=== PATIENT | female | born 2000 | race Caucasian/White ===

== ENCOUNTER 2025-01-20 19:56 | Emergency (ER) | payer BC, SELFPAY ==
[2025-01-20 20:23] VITALS: BP 112/79; PULSE 90; TEMP 37.1; O2SAT 98; BMI 23.8
--- NOTE | 2025-01-20 20:48 | XR_ITS ---
[facility] [address] Patient Name: JIGAR MARTIN MRN: [id number] date: 2000 Sex: F Assigned Patient Location: ED.MAIN Current Patient Location: ED.MAIN Accession/Order Number: [id number] Exam Date: 01/20/2025 21:00 Report Date: 01/20/2025 21:27 At the request of: MICK KIRKPATRICK Procedure: XR wrist RT min 3V 3 views right wrist plain film COMPARISON: None HISTORY: Right wrist injury. Fell. ACUTE FINDINGS: Impacted volar apex angulated fracture of the distal radius. Avulsed ulnar styloid fracture. DEGENERATIVE CHANGE: Unremarkable SOFT TISSUE FINDINGS: Unremarkable JOINT EFFUSION: None POSTOP CHANGES: The bone screw in the base of the fourth metacarpal. BONE MINERALIZATION: Adequate XR/XR wrist RT min 3V IMPRESSION: Impacted volar apex angulated distal radius fracture. Avulsed ulnar styloid fracture. Impression dictated by: Vinh Motley M.D. 01/20/2025 9:27 PM Dictation Location: [facility] Electronically authenticated by: [id number] Y Date: 01/20/2025 21:27
--- NOTE | 2025-01-20 20:51 | ED_ITS ---
HPI HPI - General Adult General Chief complaint: Extremity Injury, Upper Stated complaint: RIGHT WRIST INJURY Time Seen by Provider: 01/20/25 20:43 Source: patient Mode of arrival: walk-in Limitations: no limitations History of Present Illness HPI narrative: Patient is a 24-year-old female that presents to the emergency department with complaints of right wrist pain after she was playing softball and was running the bases and ran into another player with outstretched hands and felt a pop in her right wrist with pain. She reports severe right wrist pain and deformity since the incident. She did take 3 ibuprofen prior to evaluation. She denies numbness to the fingers. Related Data Previous Rx's ?Medication ?Instructions ?Recorded oxycodone-acetaminophen 5 mg-325 1 tab PO Q6H PRN pain #14 tabs 01/20/25 mg tablet (Percocet) Allergies Allergy/AdvReac Type Severity Reaction Status Date / Time Sulfa (Sulfonamide Allergy Mild hives Verified 01/20/25 20:22 Antibiotics) Opioid HPI Opioid Management Most Recent Opioid Data: Last Pain Scale 8 01/20/25, 21:02 Last MAR Pain Assessment 01/20/25, 21:02 PFSH PFSH Social History Little interest or pleasure in doing things: not at all Feeling down, depressed, or hopeless: not at all Exam Narrative Exam Narrative: General: No distress, age-appropriate Skin: Warm, dry, no pallor. No rash. Head: Normocephalic, atraumatic. Eye: Pupils are equal, round and EOMI. No scleral icterus. Cardiovascular: Regular Rate and Rhythm without murmur, gallop or rub. Respiratory: No accessory muscle use or respiratory distress. Musculoskeletal: Full ROM of all extremities, except right wrist. Patient is able to actively flex/extend all right fingers and thumb but this is limited secondary to wrist pain. There is deformity and swelling at the wrist. There is tenderness with palpation of the distal radius and ulna. There is a well healed surgical scar over the dorsal aspect of the fourth metacarpal. No calf or popliteal tenderness. Neurological: A&O x4. No cranial nerve dysfunction observed. No truncal ataxia. Moves all extremities. Sensation intact. Psychiatric: Cooperative and interactive. Normal mood and affect. Constitutional Vital Signs, click to edit/add: Last Vital Signs Temp 98.8 F 01/20/25 20:23 Pulse 90 01/20/25 20:23 Resp 18 01/20/25 20:23 BP 112/79 01/20/25 20:23 Pulse Ox 98 01/20/25 20:23 O2 Del Method Room Air 01/20/25 20:23 Course Vital Signs Vital signs: Vital Signs Temperature 98.8 F 01/20/25 20:23 Pulse Rate 90 01/20/25 20:23 Respiratory Rate 18 01/20/25 20:23 Blood Pressure 112/79 01/20/25 20:23 Pulse Oximetry 98 01/20/25 20:23 Oxygen Delivery Method Room Air 01/20/25 20:23 Temperature 98.8 F 01/20/25 20:23 Pulse Rate 90 01/20/25 20:23 Respiratory Rate 18 01/20/25 20:23 Blood Pressure 112/79 01/20/25 20:23 Pulse Oximetry 98 01/20/25 20:23 Oxygen Delivery Method Room Air 01/20/25 20:23 Medical Decision Making MDM Narrative Medical decision making narrative: This is a 24-year-old female that presents to the emergency department with complaints of right wrist pain and deformity after she was playing softball and running the bases and ran into another player with outstretched hands. She did feel a pop and pain in the wrist immediately. She is icing her wrist on arrival. She did take ibuprofen prior to arrival. On arrival patient is sitting up in the ED cart, appears uncomfortable. Vitals are stable. Patient is afebrile. X-ray right wrist ordered. Percocet 5 mg ordered. X-ray reviewed interpreted by myself and reveals a distal radius fracture with dorsal angulation. There is also a mildly displaced ulnar styloid fracture. Patient and parents updated with results, will talk with Dr. Juarez with orthopedics. I spoke with Dr Juarez and his office will reach out to the patient to get her scheduled this week, he did say she will likely need surgery with the degree of angulation of the fracture if satisfactory reduction is not achieved. I discussed risks versus benefits of this with patient and her parents that we could try conscious sedation and reduction vs splinting and referral. We discussed that even with attempted reduction here she still may require surgery as I discussed with Dr Juarez. She is right hand dominant. Ultimately she decided she did not want to undergo attempt at bedside reduction as she didn't think she would tolerate it, thus a sugar tong splint was applied. On re- evaluation she remained neurologically intact. Sling placed for comfort. I will send her home with 1 tablet of Percocet 5mg tonight and a short course of Percocet 5mg for pain until seen by Orthopedics. Plan will be to get her into the office tomorrow or . Splint instructions discussed and return precautions. Patient's pain was controlled and she was discharged home with close follow up with Orthopedics. Differential Diagnosis Differential Diagnosis: Distal radius/ulna fractures, wrist sprain Imaging Data Right Wrist Xray: Attestation: I have reviewed the pertinent imaging results. Radiologist's impression: ITS Impressions Wrist X-Ray 01/20/25 20:48 IMPRESSION: Impacted volar apex angulated distal radius fracture. Avulsed ulnar styloid fracture. Impression dictated by: Vinh Motley M.D. 01/20/2025 9:27 PM Dictation Location: [facility] Electronically authenticated by: [id number] Y Date: 01/20/2025 21:27 Discharge Plan Discharge Chief Complaint: Extremity Injury, Upper Clinical Impression: Distal radius fracture, right, Fracture of right ulnar styloid Patient Disposition: Home, Self-Care Time of Disposition Decision: 22:06 Condition: Good Mode of Transportation: Private Vehicle Prescriptions / Home Meds: New oxycodone-acetaminophen [Percocet] 5-325 mg tablet 1 tab PO Q6H PRN (Reason: pain) Qty: 14 0RF Print Language: Irish Instructions: Arm Fracture in Adults (DC), ORIF of an Arm Fracture (DC) Additional Instructions: Keep splint in place and keep clean and dry. Use a plastic bag or cover during showers to keep it dry or you can buy a reusable cast bags on [employer] Elevate the arm above heart level for the first 24-48 hours to reduce swelling. Return to the ER or call your doctor if: - Fingers become cold, blue, pale, or very swollen - Numbness or tingling in the fingers -Splint becomes damaged, soaked, or too tight You will need to follow-up with an intelligence operations specialist within 3 to 7 days. Referrals: Brennon Juarez DO [Physician, Orthopedics] - As soon as possible Referral Note: Office will call to set up appointment. Physician,Non-Staff, [Primary Care Provider] - 1 week Discharge Date/Time: 01/20/25 22:19 Procedures ED Ortho Splinting/Casting Orthopedic Splinting/Casting Injury #1: Side: right Splint type: Splint arm short (Sugar Tong) Upper extremity injury location: wrist Upper extremity immobilizer: sling/shoulder immobilizer Additional comments: Sugar tong splint applied. On re-evaluation patient was neurovascularly intact. <2s capillary refill to all fingers and thumb.
[2025-01-20] MEDS: OXYCODONE HCL/ACETAMINOPHEN 5MG/325MG 1 TAB PO ×2 (21:02→22:13)
--- OUTSIDE RECORDS SUMMARY | 2025-01-20 21:06 | XMS_ITS | Encounter Summary ---
Author Organization [facility] Address [address] [place] [address] Care Team Providers Care Saddle And Harness Maker Name Role Phone Sandra Dey MD Primary Care Provider + [phone] Elena Elaine PETROLEUM ANALYST Unavailable [phone] Sandra Dey MD Unavailable [phone] Encounter Details Date Type Department Care Team (Late st Contact Info) Description 03/07/2023 Abstract [facility] [address] [place] [address] Didi Mcfadden NP [address] [place] [address] Social History Tobacco Use Types Packs/Day Years Used Date Smoking Tobacco: Never Smokeless Tobacco: Never Tobacco Cessation:Counseling Given: Not Answered Alcohol Use Standard Drinks/Week Comments Not Asked 0 (1 standard drink = 0.6 oz pur e alcohol) socially Comments Unknown Sex and Gender Information Value Date Recorded Sex Assigned at Not on file Legal Sex Female 7:11 PM EDT Gender Identity Female 07/05/2022 7:11 PM EDT Sexual Orientation Not on file documented as of this encounter Plan of Treatment Not on file documented as of this encounter Visit Diagnoses Not on filedocumented in this encounter Care Teams Saddle And Harness Maker Relationship Specialty Start Date End Date Sandra Dey MD [address] [place] [address] PCP - General Family Medicine 11/17/22 Sandra Dey MD [address] [place], [place] [id number] PCP - Romulo Post 02/21/23 Chele, Elena Morales NP [address] [place], [place] [id number] Nurse Practitioner Family Medicine 11/17/22 documented as of this encounter
--- OUTSIDE RECORDS SUMMARY | 2025-01-20 21:06 | XMS_ITS | Clinical Summary ---
Author Organization [facility] Address [address] [place] [address] Care Team Providers Care Rubbing Bed Operator Name Role Phone MillyJagjit zimmerman Primary Care Provider Unavailabl e Social History Tobacco Use Types Packs/Day Years Used Date Smoking Tobacco: Never Assessed [place] Safety & Environment Answer Date Rec orded Fear of Current or Ex-Partner Not on file Emotionally Abused Not on file 06/14/2023 Physically Abused Not on file 06/14/2023 Sexually Abused Not on file 06/14/2023 Physically or Sexually Abused Not on file Comments Unknown Sex and Gender Information Value Date Recorded Sex Assigned at Not on file Legal Sex Female 12:33 AM EDT Gender Identity Not on file Sexual Orientation Not on file Plan of Treatment Health Maintenance Due Date Last Done Comments Depression Screening 2013 Varicella Vaccines (1 of 2 - 13+ 2-dose series) 2014 HPV Vaccines (1 - 3-dose series) 2016 Meningococcal B Vaccine (1 of 2 - Standard) 2017 Pap Smear 2022 Adult Tetanus 09/24/2023 Influenza Vaccine (#1) 2024 0, 02/05/2010, 03/31/2009, Additional history exists Zoster Vaccines (1 of 2) 09/24/2051 Meningococcal Vaccine Completed 12/17/2018 HIB Vaccines Aged Out No longer eligi ble based on patient's age to complete this topic IPV Vaccines Aged Out No longer eligi ble based on patient's age to complete this topic Pneumococcal Vaccine: Pediatrics (0 to 5 Years) and At-Risk Patients (6 to 64 Years) Aged Out No longer eligible based on patient's age to complete this topic Rotavirus Vaccines Aged Out No longer eligible based on patient's age to complete this topic Insurance [employer] Care Teams Rubbing Bed Operator Relationship Specialty Start Date End Date Jagjit Womack [address] [place] [address] PCP - General 01/24/22
--- OUTSIDE RECORDS SUMMARY | 2025-01-20 21:06 | XMS_ITS | Clinical Summary ---
Author Organization [facility] Address [address] [address] Care Team Providers Care Content Development Specialist Name Role Phone Sandra Dey MD Primary Care Provider + [phone] CaseElena DOUGHNUT GLAZIER Unavailable [phone] Allergies Active Allergy Reactions Criticality Noted Date Comments Pollen Extract Unknown 11/21/2022 Sulfamethoxazole-Trimethoprim Rash Low 2022 Medications ibuprofen 200 MG tablet every 6 (six) hours. Active midodrine (Proamatine) 10 MG tablet every 8 (eight) hours. Active Active Problems Problem Noted Date Diagnosed Date Menorrhagia with regular cycle 11/21/2022 Plantar wart of right foot 11/21/2022 Immunizations Immunization Administration Dates Next Due Influenza, live, intranasal 02/05/2010 Influenza, seasonal, intradermal, preservative f ree 04/12/2020 Meningococcal MCV4P 12/17/2018 Novel [id number], nasal 02/19/2009 Novel [id number], preservative-free 03/31 Family History Relation Name Status Comments Brother 1 Alive Brother 2 Alive Father Alive Mother Alive Sister Alive Social History Tobacco Use Types Packs/Day Years [...] PM EDT Sexual Orientation Not on file Last Filed Vital Signs Vital Sign Reading Time Taken Comments Blood Pressure 110/76 11/22/2022 9:10 AM EDT Pulse 86 11/22/2022 9:10 AM EDT Temperature 36.6 C (97.9 F) 11/22/2022 9:10 AM EDT Respiratory Rate - - Oxygen Saturation 98% 11/22/2022 9:10 AM EDT Inhaled Oxygen Concentration - - Weight 64 kg (141 lb) 11/22/2022 9:10 AM EDT Height 156.2 cm (5' 1.5 ) 11/22/2022 9:10 AM EDT Body Mass Index 26.21 11/22/2022 9:10 AM EDT Plan of Treatment Health Maintenance Due Date Last Done Comments Influenza Vaccine (#1) 2024 04/12/2020, 2009 Insurance [facility] Member Subscriber Plan / Payer (Ef fective 2022-Present) Name:Mildred Martin Member ID:[id number] Relation to Subscriber:Child Name:JOAN MARTIN Subscriber ID:[id number] Date of :1968 Address: [address] [place] [address] [place] [address] Payer ID:Not on file Type:Not on file Address: [facility] [id number] [place] [address] Care Teams Content Development Specialist Relationship Specialty Start Date End Date Sandra Dey MD [address] [place] [address] PCP - General Family Medicine 11/17/22 Elena Elaine NP [address] [place] [address] Nurse Practitioner Family Medicine 11/17/22
--- OUTSIDE RECORDS SUMMARY | 2025-01-20 21:07 | XMS_ITS | Patient Health Record ---
Author Organization [facility] [place] Address [address] [place] [address] Care Team Providers Care Call Or Contact Centre Team Leader Name Role Phone Case Elena MALONEY Primary Care Provider Unavail able Allergies Allergen (clinical drug ingredient) Drug/Non Drug Allergy documented on EMR Reaction Allergy Type Onset Date Status Information temporarily unavailable Sulfa Antibiotics Unknown Drug Allergy Active Reason For Referral No Information Medications Medication SIG (Take, Route, Frequency, Duration) Notes Start Date End Date Status Blisovi FE 05/12 1-20 MG-MCG 1 tablet Orally Once a day; Duration: 28 day(s) 04/13/2022 Not-Taking valACYclovir HCl 1 GM 1 tablet Orally On ce a day; Duration: 7 Days 03/10/2022 Active Social History Tobacco Use: Social History Observation Description Date Details (start date - stop date) Never Smoker NA - NA Tobacco Use/Smoking Question Answer Notes Patient is a nonsmoker Problems Problem Type SNOMED Code ICD Code Onset Dates Problem Status W/U Status Risk Notes Problem Information temporarily unavailable 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
--- OUTSIDE RECORDS SUMMARY | 2025-01-20 21:08 | XMS_ITS | Patient Health Record ---
Author Organization [facility] Address [address] [place] [address] Care Team Providers Care Sailing Master Name Role Phone NO, PCP Primary Care Provider Unavailaj davidson Basahra Motta Shanel Unavailable [phone] JamaleVronica oliveira Unavailable [phone] Allergies Allergen (clinical drug ingredient) Drug/Non Drug Allergy documented on EMR Reaction Allergy Type Onset Date Status Information temporarily unavailable Sulfa Antibiotics hives Drug Allergy Active Results Component Value Reference Range Notes Flu/COVID Rapid Antigen (IH) Reviewed date:04/30/2024 11:48:42 AM Interpretation:Positive Performing Lab: Notes/Report: Positive Flu A POSITIVE Negative - Positive Flu B negative Negative - Positive SARS CoV 2 negative Negative - Positive Reason For Referral No Information Medications Medication SIG (Take, Route, Frequency, Duration) Notes Start Date End Date Status ZyrTEC 10 MG 1 tablet Orally Once a day PRN Active Midodrine HCl 2.5 MG 1 tab(s) orally tamie es 2 tabs 1 hour prior to physical acvtivity PRN Active Mupirocin 2 % 1 application Manager Primary ally Twice a day; Duration: 10 days 01/13/2025 01/23/2025 Active Clindamycin HCl 300 MG 1 capsule Orally 3 times a day; Duration: 10 days 01/13/2025 Active Immunizations Vaccine Route Administration Date Status Comme nts Flu Vaccine (Given in Past) Unspecified Unknown 04/30/2024 Administered z2022 FluBLOK Quad PFS (0.5m L Admin) 18 y/o & older Unknown 01/26/2022 Refused z2022 FluBLOK Quad PFS (0.5m L Admin) 18 y/o & older Unknown 02/02/2022 Refused Social History Tobacco Use: Social History Observation Description Date Details (start date - stop date) Never Smoker NA - NA Alcohol Misuse/Abuse (Audit C): Question Answer Notes Did you have a drink contain ing alcohol in the past year? Yes How often did you have a dri nk containing alcohol? Two to four times a month (2 points) How many drinks did you have on a typical occasion? 1 or 2 (0 points) Points: 2 Interpretation: Negative Tobacco Control (Standard) Question Answer Notes Tobacco use: Nonsmoker Section Notes: Immunizations up to date. Immunizations up to date. Immunizations up to date. Immunizations up to date. Immunizations up to date. Immunizations up to date. Immunizations up to date. Immunizations up to date. Immunizations up to date. Immunizations up to date. Problems Problem Type SNOMED Code ICD Code Onset Dates Problem Status W/U Status Risk Notes Problem Information temporarily unavailable Seasonal allergies (J30.2) Active confirmed Problem Information temporarily unavailable Neurocardiogenic syncope (R55) Active confirmed Vital Signs Temperature 99.2 degrees Fahrenheit 01/13/2025 Respiratory Rate 16 /min 01/13/2025 Oximetry 98 01/13/2025 Blood pressure diastolic 68 mm Hg 01/13/2025 Height 64 in 01/13/2025 Blood pressure systolic 100 mm Hg 01/13/2025 Weight 137 lbs 01/13/2025 BMI 23.51 kg/m2 01/13/2025 Encounters Encounter Location Date Provider Diagnosis [id number] [facility] [address] [place] [address] 04/30/2024 Shanel Motta Encounter for screening for COVID-19 Z11.52 and Influenza A J10.1 [address] [facility] [address] [place] [address] 01/13/2025 Veronicaedison Berry Cellulitis of left leg L03.116 ; Allergic reaction to drug, initial encounter T78.40XA and Influenza vaccination declined by provider Z28.29 Assessments Encounter Date Diagnosis (ICD Code) Assessment Notes Treatment Notes Treatment Clinical Notes Section Notes 04/30/2024 Influenza A (ICD-10 - J10.1) Influenza (Flu): Care Instructions material was published Symptoms appear viral in nature. If symptoms persist or worsen, follow up in the clinic or with PCP for further evaluation. Patient reports that her symptoms started less than 48 hours ago. Influenza (flu) is an infection in the lungs and breathing passages. It is caused by the influenza virus. There are different strains, or types, of the flu virus from year to year. Unlike the common cold, the flu comes on suddenly and the symptoms can be more severe. These symptoms include a cough, congestion, fever, chills, fatigue, aches, and pains. These symptoms may last for a few weeks. Although the flu can make you feel very sick, it usually doesn't cause serious health problems. Home treatment is usually all you need for flu symptoms. But your doctor may prescribe antiviral medicine to prevent other health problems, such as pneumonia, from developing. The risk of other health problems from the flu is highest for young children (under 2), older adults (over 65), women, and people with long-term health conditions. Follow-up care is a bergeron part of your treatment and safety. Be sure to make and go to all appointments, and call your doctor if you are having problems. It's also a good idea to know your test results and keep a list of the medicines you take. How can you care for yourself at home?Get plenty of rest.Drink plenty of fluids. If you have to limit fluids because of a health problem, talk with your doctor before you increase the amount of fluids you drink.Take an dehv-fza-uzouxma pain medicine if needed, such as acetaminophen (Tylenol), ibuprofen (Advil, Motrin), or naproxen (Aleve), to relieve fever, headache, and muscle aches. Be safe with medicines. Read and follow all instructions on the label.No one younger than 20 should take aspirin. It has been linked to Harvinder syndrome, a serious illness.Take any prescribed medicine exactly as directed.Do not smoke. Smoking can make the flu worse. If you need help quitting, talk to your doctor about stop-smoking programs and medicines. These can increase your chances of quitting for good.If the skin around your nose and lips becomes sore, put some petroleum jelly (such as Vaseline) on the area.To ease coughing:Suck on cough drops or plain, hard candy.Try an nobr-ppn-ekyavwf cough or cold medicine. Read and follow all instructions on the label.Raise your head at night with an extra pillow. This may help you rest if coughing keeps you awake.To avoid spreading the fluWash your hands regularly, and keep your hands away from your face.Stay home from school, work, and other public places until you are feeling better and your fever has been gone for at least 24 hours. The fever needs to have gone away on its own without the help of medicine.Ask people living with you to talk to their doctors about preventing the flu. They may get antiviral medicine to keep from getting the flu from you.To prevent the flu in the future, get the flu vaccine every fall. Encourage people living with you to get the vaccine.Cover your mouth when you cough or sneeze. If you can, cough or sneeze into the bend of your elbow, not your hands.When should you call for help?< img width= 46 alt= src= https://cont ent.[facility].az t/resources/14.3/ en-us/media/inter face/gvbi-npe-mau p_icn.jpg height= 46 >Ca ll 911 anytime you think you may need emergency care. For example, call if: You have severe trouble breathing.You have a seizure.Call your doctor now or seek immediate medical care if: You have trouble breathing.You have a fever with a stiff neck or a severe headache.You have pain or pressure in your chest or belly.You have a fever or cough that returns after getting better.You feel very sleepy, dizzy, or confused.You are not urinating.You have severe muscle pain.You have severe weakness, or you are unsteady.You have medical conditions that are getting worse.Watch closely for changes in your health, and be sure to contact your doctor if: You do not get better as expected.You are having a problem with your medicine. 04/30/2024 Encounter for screening for COVID-19 (ICD-10 - Z11.52) COVID-19 Viral Test: About This Test material was published, 7 Reasons You May Need a COVID-19 Viral Test material was published The rapid COVID & FLU test was completed at this visit. Results published on the patient portal. Follow up in the clinic or with PCP as needed 01/13/2025 Cellulitis of left leg (ICD-10 - L03.116) Cellulitis: Care Instructions material was published Discussed with parent and patient, differential diagnoses include but are not limited to cellulitis and allergic reaction to drug, cannot exclude less likely developing systemic infection, staph scalded skin syndrome, Paulson-Phani, and others. Rash appears mostly morbilliform in nature without blisters or painful skin at this time, likely due to sulfa, although pt reports hives with prior reaction she verbalizes the rash looked similar to the rash she has today. Discussed cannot completely exclude rash is from other forms of infection such as staph or strep, pt took 5 days of keflex and bactrim however concern that medications were old/, keflex was underdosed or possible resistance to antibiotic. We will begin patient on clindamycin for expanded coverage on strep, possible staph/MRSA, and recommend close monitoring of symptoms. Pt will be started on medrol dosepack for suspected allergic reaction to medication, she has already had 20 mg of prednisone this morning prior to arrival, we will defer steroid injection here, she may begin taper this afternoon when she picks up this medication. Parent and patient was advised if symptoms are worsening in the next 24 hours despite plan of care and prescribed treatment proceed to ER for further evaluation. Parent and patient amenable to plan. Monitor status of wound and fevers, if worsening or severe symptoms in fever or allergic reaction develop despite antibiotics and steroid go to ER. Keep wound clean, wash with soap and water, no swimming, ponds, lakes or bathing, you may shower. Return to clinic in 4-5 days, sooner if needed, ER if worse. Patient instructed to avoid the use of NSAIDS (such as: Motrin, Ibuprofen, Advil, naproxen, Aleve, Celebrex, Diclofenac) while taking oral steroids. Complete the entire course of antibiotics as prescribed, even when symptoms have improved, to prevent a relapse of infection and the development of antibiotic resistance. 01/13/2025 Allergic reaction to drug, initial encounter (ICD-10 - T78.40XA) Allergic Reaction: Care Instructions material was published 01/13/2025 Influenza vaccination declined by provider (ICD-10 - Z28.29) Provider recommended to hold off on vaccination at this time given infection and possible drug allergic reaction at today's visit. 04/30/2024 Other Oseltamivir Oral Capsule (OSELTAMIVIR - ORAL) material was published, Brompheniramine/D extromethorphan/P seudoephedrine Oral Solution (DEXTROMETHORPHAN /DECONGESTANT/ANT IHISTAMINE - ORAL) material was published Visit summary given to and discussed with patient and/or parent who verbalizes understanding and agreement with plan of care. Thank you for your visit. Please look for the satisfaction survey that you will receive via email. We look forward to receiving your feedback regarding your experience at [facility]. Plan Of Treatment No Information Insurance Providers Payer Name Payer Address Payer Phone Subscriber Number Group Number Insured Name Patient Relationship to Insured Coverage Start Date Coverage End Date [facility] [address] [place] [address] [id number] Mildred Burt Self - patient is the insured Medical (General) History Medical History History ICD Code Seasonal allergies J30.2 Neurocardiogenic syncope R55 Surgical History Surgery Date(Month/Year) [place] [facility] right hand surgery 2020
--- OUTSIDE RECORDS SUMMARY | 2025-01-20 21:08 | XMS_ITS | Clinical Summary ---
Author Organization [facility] tem Address [facility] [id number] [address] [place] [address] Care Team Providers Care Field Clinical Engineer Name Role Phone Case, Elena Morales PHARMACOGNOSY TEACHER-VENUE MANAGER Primary Care Provider Allergies Active Allergy Reactions Criticality Noted Date Comments Sulfa (Sulfonamide Antibiotics) 12/22 Sulfamethoxazole-Trimethoprim Rash Low 2022 Medications midodrine (PROAMATINE) 10 mg tablet TAKE ONE TABLET BY MOUTH THREE TIMES A DAY 90 tablet 10 08/13/2018 Active valACYclovir (VALTREX) 500 mg tabletIndication s:HSV infection Take 1 tablet (500 mg total) by mouth in the morning. 90 tablet 3 05/12/2024 Active Active Problems No known active problems Family History Medical History Relation Name Comments Depression Brother Depression Sister Relation Name Status Comments Brother Alive Father Alive Mother Alive Sister Alive Social History Tobacco Use Types Packs/Day Years Used Date Smoking Tobacco: Never Smokeless Tobacco: Never Tobacco Cessation:Counseling Given: Not Answered Alcohol Use Standard Drinks/Week Comments Never 0 (1 standard drink = 0.6 oz pur e alcohol) Childcare Answer Date Recorded Childcare Unknown 10/02/2018 Employment Answer Date Recorded Employment Unknown 10/02/2018 Hunger Screening Answer Date Recorded Within the past 12 months we worried whether our food would run out before we got money to buy more. Never True 05/12/2024 Within the past 12 months th e food we bought just didn't last and we didn't have money to get more. Never True 05/12/2024 Purpose - Life Answer Date Recorded Purpose and direction in life Unknown Comments No Sex and Gender Information Value Date Recorded Sex Assigned at Not on file Legal Sex Female 10:11 AM EDT Gender Identity Not on file Sexual Orientation Not on file Last Filed Vital Signs Vital Sign Reading Time Taken Comments Blood Pressure 121/81 05/12/2024 11:20 AM EST Pulse 85 05/12/2024 11:20 AM EST Temperature 37 C (98.6 F) 01/02/2023 10:18 AM EDT Respiratory Rate 16 01/02/2023 10:18 AM EDT Oxygen Saturation 98% 01/02/2023 10:18 AM EDT Inhaled Oxygen Concentration - - Weight 65.4 kg (144 lb 3.2 oz) 05/12/2024 11:20 AM EST Height 157.5 cm (5' 2 ) 05/12/2024 11:20 AM EST Body Mass Index 26.37 05/12/2024 11:20 AM EST Plan of Treatment Upcoming Encounters Date Type Department Care Team (Late st Contact Info) Description 05/13/2025 3:30 PM EST Office Visit [facility] [address] [place] [address] Petra Workman, PHARMACOGNOSY TEACHER-VENUE MANAGER [address] [facility] [place] [address] Health Maintenance Due Date Last Done Comments Depression Screening 2013 Adult BMI Follow Up Plan 09/24/2019 DTaP,Tdap and Td Vaccines (1 - Tdap) 2020 COVID-19 Vaccine (3 - 2024-2 6 season) 2024 08/16/2020, 07/26/2020 Influenza Vaccine 12/22/2024 01/25/2024, , 02/05/2010, Additional history exists Adult BMI Screening 05/12/2025 05/12/2024 Chlamydia Screening 05/12/2025 05/12/2024 Tobacco Screening 05/12/2025 05/12/2024 Pap Smear 05/09/2026 05/09/2023 Medical Devices Not on file Procedures Procedure Name Priority Date/Time Associated Diagnosis Comments CHLAMYDIA/GC BY PCR SANDRA SWAB Routine 05/12/2024 11:57 AM EST Routine screening for STI (sexually transmitted infection) PAP SMEAR Routine 05/09/2023 7:03 AM EST Encounter for annual routine gynecological examination from Last 3 Months or Most Recently Relevant to Health Maintenance Results * Chlamydia/GC by PCR Sandra Swab (05/12/2024 11:57 AM EST) Specimen source CERVIX 9:14 PM EST [facility] Chlamydia DNA PCR Negative Negative^N egative 05/13/2024 2:32 PM EST [facility] Comment: Chlamydia trachomatis not detected by nucleic acid amplification. This does not exclude the possibility of infection because results are dependent on adequate specimen collection. Gonorrhea DNA PCR Negative Negative^N egative 05/13/2024 2:32 PM EST [facility] Comment: Neisseria gonorrhoeae not detected by nucleic acid amplification. This does not exclude the possibility of infection because results are dependent on adequate specimen collection. GENS 05/12/2024 11:5 7 AM EST 05/12/2024 9:14 PM EST Petra Workman PHARMACOGNOSY TEACHER-VENUE MANAGER MICROBIOLOGY - GENERAL ORDERABLES Final Result [facility] [address] [place] [address], [facility] [address] [place] [address] * Pap Smear (05/09/2023 7:03 AM EST) 05/09/2023 7:03 AM EST 05/09/2023 7:18 AM EST Narrative COPATH - 05/16/2023 11:14 AM EST [facility] [address] [place] [id number] Gynecologic Cytology Consultation Patient Name:MILDRED MARTIN:2000 (Age: 22)Gender:FTaken:4Reported:4Physician(s):Petra Workman NIris ([phone])Copy To: Rec. #:[id number]: #[id number] Final Cytologic Interpretation ThinPrep Pap Test (Cervical): Satisfactory for evaluation. A transformation zone component is present. NEGATIVE FOR INTRAEPITHELIAL LESION OR MALIGNANCY. Fungal organisms morphologically consistent with Gwendolyn species are present. jja/05/16/2023 Interpretation [place] [address], License number: [id number]. Electronically Signed Out By ROSA MARIA Martinez(ASCP) Date of Last Menstrual Period: 04/17/23 Other Clinical Conditions: Z01.419 Life Enrichment Assistant exam wo/abn findings Source of Specimen ThinPrep Pap Test (Cervical) Thin Prep Pap ([employer]) Fee Code(s): G0145 Petra Workman PHARMACOGNOSY TEACHER-VENUE MANAGER PATHOLOGY/CYTOLOGY [facility] Final Result COPATH from Last 3 Months or Most Recently Relevant to Health Maintenance Insurance [employer] Care Teams Field Clinical Engineer Relationship Specialty Start Date End Date Case, Elena Morales APRN-VENUE MANAGER [address] [place] [address] PCP - General Nurse Practitioner 05/09/23
== END 2025-01-20 22:19 | disposition home or self-care (01) ==
PROVIDERS: Emergency Provider Internal Medicine
DX: S52.501A Unspecified fracture of the lower end of right radius, initial encounter for closed fracture (principal); S52.611A Displaced fracture of right ulna styloid process, initial encounter for closed fracture; W51.XXXA Accidental striking against or bumped into by another person, initial encounter; Y93.64 Activity, baseball
CPT/HCPCS: 29125; 73110; 99283